=== PATIENT | male | born 1980 | race African-American/Black ===

== ENCOUNTER 2017-10-10 23:38 | Emergency (ER) | payer OTHER ==
[~2017-10-10] VITALS: Ht 177.8 cm; Wt 80.0 kg
[~2017-10-10 23:38] MED LIST: IPRA4AER IH
[2017-10-10] MEDS ORDERED: LURA80 PO (23:47)
[2017-10-11] MEDS ORDERED: CLINDAMYCIN HCL 150 MG CAPSULE PO ONE (01:00)
[2017-10-11 01:33] VITALS: BP 128/72
== END 2017-10-11 01:36 | disposition home or self-care (01) ==
LOC: EMS 23:39
DX: L03.311 Cellulitis of abdominal wall (principal); F32.9 Major depressive disorder, single episode, unspecified; J45.909 Unspecified asthma, uncomplicated; F17.200 Nicotine dependence, unspecified, uncomplicated; F12.10 Cannabis abuse, uncomplicated; Z79.899 Other long term (current) drug therapy
CPT/HCPCS: 99283

== ENCOUNTER 2019-05-01 10:34 | Emergency (ER) | payer OTHER ==
[~2019-05-01] VITALS: Ht 177.8 cm; Wt 77.3 kg
[~2019-05-01 10:34] MED LIST changes: +LURA80 PO
[2019-05-01] MEDS ORDERED: PROPARACAINE HCL 0.5% 15 ML OPHTHALMIC SOLUTION OD ONE (13:30)
[2019-05-01] MEDS ORDERED: FLUORESCEIN SODIUM 1 MG STRIP OU ONE (13:30)
[2019-05-01] MEDS ORDERED: NEOMYCIN/POLYMYXIN B/HYDROCORT 7.5 ML OPHTHALMIC SUSPENSION OD ONE (13:45)
[2019-05-01 14:14] VITALS: BP 136/79
== END 2019-05-01 14:19 | disposition home or self-care (01) ==
LOC: EMS 10:36
DX: S05.01XA Injury of conjunctiva and corneal abrasion without foreign body, right eye, initial encounter (principal); F17.210 Nicotine dependence, cigarettes, uncomplicated; J45.909 Unspecified asthma, uncomplicated; F32.9 Major depressive disorder, single episode, unspecified; F12.90 Cannabis use, unspecified, uncomplicated; Z91.030 Bee allergy status; W22.8XXA Striking against or struck by other objects, initial encounter; Y93.89 Activity, other specified; Y92.89 Other specified places as the place of occurrence of the external cause; Y99.8 Other external cause status
CPT/HCPCS: 99406

== ENCOUNTER 2021-01-15 15:38 | Emergency (ER) | payer MEDICAID, OTHER ==
[~2021-01-15] VITALS: Ht 177.8 cm; Wt 70.5 kg
[~2021-01-15 15:38] MED LIST changes: -LURA80 PO; +LURA80TA2 PO
[2021-01-15] MEDS ORDERED: METHOCARBAMOL 500 MG TABLET PO ONE (19:15)
[2021-01-15] MEDS ORDERED: KETOROLAC TROMETHAMINE 60 MG/2 ML VIAL IM ONE (19:15)
[2021-01-15 19:25] VITALS: BP 148/91
== END 2021-01-15 19:26 | disposition home or self-care (01) ==
LOC: EMS 15:39
DX: S13.8XXA Sprain of joints and ligaments of other parts of neck, initial encounter (principal); F32.9 Major depressive disorder, single episode, unspecified; J45.909 Unspecified asthma, uncomplicated; X58.XXXA Exposure to other specified factors, initial encounter; Y93.89 Activity, other specified; Y92.89 Other specified places as the place of occurrence of the external cause; Y99.8 Other external cause status
CPT/HCPCS: 72040; 96372; 99283; J1885

== ENCOUNTER 2021-08-22 12:50 | Emergency (ER) | payer MEDICAID, OTHER ==
[~2021-08-22] VITALS: Ht 177.8 cm; Wt 77.0 kg
[2021-08-22 13:11] VITALS: BP 129/81
== END 2021-08-22 13:37 | disposition left against medical advice (07) ==
LOC: EMS 12:50
DX: J02.9 Acute pharyngitis, unspecified (principal); Z53.21 Procedure and treatment not carried out due to patient leaving prior to being seen by health care provider

== ENCOUNTER 2021-09-22 19:25 | Emergency (ER) | payer OTHER ==
[~2021-09-22] VITALS: Ht 177.8 cm; Wt 75.0 kg
[2021-09-22 22:00] VITALS: BP 115/71
== END 2021-09-22 22:57 | disposition home or self-care (01) ==
LOC: EMS 19:29
DX: M79.671 Pain in right foot (principal); M79.672 Pain in left foot; Z79.899 Other long term (current) drug therapy
CPT/HCPCS: 99282; Z7502